=== PATIENT | female | born 1980 ===

== ENCOUNTER 2017-09-06 10:12 | Emergency (ER) | payer MEDICAID, OTHER ==
[2017-09-06 10:27] VITALS: RESP 20
[2017-09-06] MEDS ORDERED: Sodium Chloride 0.9% 1,000 ML IV ONE ×2 (11:13→12:58)
[2017-09-06] MEDS ORDERED: Sodium Chloride 0.9% 1,000 ML ONE (11:23)
[2017-09-06 11:26] LABS: BASO # 0.1 K/uL (0.0-0.2); BASO % 0.7 % (0.0-2.0); EOS # 0.2 K/uL (0.0-0.7); EOS % 2.8 % (0.0-4.0); HEMOGLOBIN 13.8 g/dL (11.0-16.0); LYMPH # 1.7 K/uL (1.0-4.3); LYMPH % 19.7 % (20.0-40.0); MEAN CELL VOLUME 83.4 fL (81.0-99.0); MEAN CORPUSCULAR HEMOGLOBIN 27.5 pg (27.0-31.0); MEAN PLATELET VOLUME 7.3 fL (7.2-11.7); MONO # 0.6 K/uL (0.0-0.8); MONO % 7.1 % (0.0-10.0); NEUT % 69.7 % (50.0-75.0); RBC 5.02 Mil/uL (3.80-5.20); WHITE BLOOD COUNT 8.7 K/uL (4.8-10.8)
--- NOTE | 2017-09-06 11:38 | C.PDOC ---
History Of Present Illness 37yo female, with history of diverticulitis, presents to ED with complaints of vomiting and diarrhea for the past day. Patient states she has been unable to tolerate PO intake, prompting her visit today. She denies any associated fever, chills, and offers no other medical complaints. Time Seen by Provider: 09/06/17 10:57 Chief Complaint (Nursing): Abdominal Pain History Per: Patient History/Exam Limitations: no limitations Onset/Duration Of Symptoms: Days (1) Current Symptoms Are (Timing): Still Present Associated Symptoms: Nausea, Vomiting, Diarrhea. denies: Fever, Chills Past Medical History Reviewed: Historical Data, Nursing Documentation, Vital Signs Vital Signs: Last Vital Signs Temp 98.2 F 09/06/17 14:10 Pulse 88 09/06/17 14:10 Resp 20 09/06/17 14:10 BP 115/76 09/06/17 14:10 Pulse Ox 100 09/06/17 14:10 - Medical History PMH: Asthma, Kidney Stones, Chronic Kidney Disease Denies: Fibromyalgia Surgical History: Appendectomy Family History: States: Unknown Family Hx - Social History Hx Tobacco Use: Yes Hx Alcohol Use: No Hx Substance Use: No - Immunization History Hx Tetanus Toxoid Vaccination: Yes Hx Influenza Vaccination: No Hx Pneumococcal Vaccination: No Review Of Systems Except As Marked, All Systems Reviewed And Found Negative. Constitutional: Negative for: Fever, Chills Gastrointestinal: Positive for: Vomiting, Diarrhea Physical Exam - Physical Exam Appears: Non-toxic, No Acute Distress Skin: Normal Color, Warm, Dry Head: Atraumatic, Normacephalic Eye(s): bilateral: Normal Inspection Oral Mucosa: Moist Throat: Normal Neck: Normal ROM, Supple Chest: Symmetrical Cardiovascular: Rhythm Regular Respiratory: Normal Breath Sounds Gastrointestinal/Abdominal: Normal Exam, Soft, No Tenderness Extremity: Normal ROM Neurological/Psych: Oriented x3 ED Course And Treatment - Laboratory Results Result Diagrams: 09/06/17 11:21 09/06/17 11:21 Lab Interpretation: No Acute Changes O2 Sat by Pulse Oximetry: 97 (RA) Pulse Ox Interpretation: Normal Progress Note: Tretated with IVF NSS x1 liter, zofran and pepcid. Treated with additional IVF NSS and toradol. On re-evaluation feeling better, abdomen soft. Discharged in stable condition Reassessment Condition: Improved Medical Decision Making Medical Decision Making: Plan: -- CMP -- Lipase -- Urinalysis -- Urine HCG -- IV Fluids -- Zofran 4mg IVP -- Pepcid 20 mg IVP Disposition Counseled Patient/Family Regarding: Studies Performed, Diagnosis, Need For Followup, Rx Given - Disposition Referrals: [facility] [Outside] [facility] [Outside] Disposition: HOME/ ROUTINE Disposition Time: 14:00 Condition: STABLE Additional Instructions: Follow up with PMD for further evaluation Return to ED if any increase symptoms Prescriptions: Nitrofurantoin Macrocrystals [Macrobid] 1 cap PO BID #14 cap Ondansetron ODT [Zofran ODT] 1 odt PO BID PRN #6 odt PRN Reason: Nausea/Vomiting Instructions: Viral Gastroenteritis Forms: [employer] ([employer]) - POA Present On Arrival: None - Clinical Impression Clinical Impression: Vomiting, Diarrhea, Nausea, UTI (urinary tract infection) - PA / PUBLIC WEIGHER / Resident Statement MD/DO has reviewed & agrees with the documentation as recorded. - Scribe Statement The provider has reviewed the documentation as recorded by the Scribe (Sangeetha Srivastava) Provider Attestation: All medical record entries made by the Scribe were at my direction and personally dictated by me. I have reviewed the chart and agree that the record accurately reflects my personal performance of the history, physical exam, medical decision making, and the department course for this patient. I have also personally directed, reviewed, and agree with the discharge instructions and disposition.
[2017-09-06 11:40] LABS: SQUAMOUS EPITHIAL 2 /hpf (0-5); URINE BACTERIA OCC (<OCC); URINE BILIRUBIN NEGATIVE (NEGATIVE); URINE BLOOD 2+ (NEGATIVE); URINE CLARITY Hazy (Clear); URINE COLOR Yellow (YELLOW); URINE GLUCOSE (UA) NORMAL (Normal); URINE LEUKOCYTE ESTERASE 1+ Leu/uL (Negative); URINE PROTEIN 1+ mg/dL (NEGATIVE); URINE UROBILINOGEN NORMAL mg/dL (0.2-1.0)
[2017-09-06 11:41] LABS: HCG,QUALITATIVE URINE NEGATIVE (NEGATIVE)
[2017-09-06 12:34] LABS: ALB/GLOB RATIO 1.4 (1.0-2.1); ALBUMIN 4.4 g/dL (3.5-5.0); CALCIUM 9.1 mg/dl (8.6-10.4); GFR AFRICAN-AMERICAN > 60; GFR NON-AFRICAN AMERICAN > 60; LIPASE 64 U/L (23-300)
[2017-09-06 12:37] LABS: ALT/SGPT < 6 U/L (9-52); AST/SGOT 28 U/L (14-36); BLOOD UREA NITROGEN 19 mg/dL (7-17)
[2017-09-06 14:11] VITALS: BP 115/76; PULSE 88; TEMP 98.2
[2017-09-06 17:43] VITALS: O2SAT 97
== END 2017-09-06 14:10 | disposition home or self-care (01) ==
LOC: C.ER 10:12
DX: N39.0 Urinary tract infection, site not specified (principal); R11.2 Nausea with vomiting, unspecified; R19.7 Diarrhea, unspecified; N18.9 Chronic kidney disease, unspecified
CPT/HCPCS: 80053; 81001; 83690; 84703; 85025; 96361; 96374; 96375; 99285; J1885; J2405; J7040